=== PATIENT | female | born 1965 | race African-American/Black ===

== ENCOUNTER 2017-11-15 05:07 | Emergency (ER) | payer OTHER ==
[~2017-11-15] VITALS: Ht 162.6 cm; Wt 63.6 kg
[2017-11-15] MEDS ORDERED: IBUPROFEN 400 MG TABLET PO ONE (06:00)
[2017-11-15] MEDS ORDERED: CYCLOBENZAPRINE HCL 10 MG TABLET PO ONE (06:00)
[2017-11-15 06:55] VITALS: BP 116/78
== END 2017-11-15 07:04 | disposition home or self-care (01) ==
LOC: EMS 05:07
DX: R25.2 Cramp and spasm (principal)
CPT/HCPCS: 99283